=== PATIENT | male | born 1975 | race Caucasian/White ===

== ENCOUNTER → 2020-02-26 14:04 | Outpatient (CLI) | payer OTHER | END | disposition home or self-care (01) | LOC: D.LAB 14:04 | PROVIDERS: ATTEND Internal Medicine Gastroenterology | DX: R19.7 Diarrhea, unspecified (principal) ==

== ENCOUNTER → 2020-04-12 08:16 | Outpatient (CLI) | payer BC | END | disposition home or self-care (01) | LOC: D.CT 08:16 | PROVIDERS: ATTEND Internal Medicine Gastroenterology | DX: K52.9 Noninfective gastroenteritis and colitis, unspecified (principal); R10.84 Generalized abdominal pain; R19.7 Diarrhea, unspecified ==

== ENCOUNTER → 2020-11-02 07:46 | Outpatient (CLI) | payer MEDICARE, BC ==
[2020-11-02 13:00] LABS: THYROID STIMULATING HORMONE 1.65 uIU/mL (0.36-3.74)
== END | disposition home or self-care (01) ==
LOC: D.NM 07:46
PROVIDERS: ATTEND Internal Medicine Gastroenterology
DX: R19.7 Diarrhea, unspecified (principal)

== ENCOUNTER → 2020-11-18 08:51 | Outpatient (CLI) | payer MEDICARE, BC | END | disposition home or self-care (01) | LOC: D.US 08:00 | PROVIDERS: ATTEND Internal Medicine Gastroenterology | DX: R93.3 Abnormal findings on diagnostic imaging of other parts of digestive tract (principal) ==